=== PATIENT | female | born 1990 | race Caucasian/White ===

== ENCOUNTER → 2019-05-22 13:06 | Outpatient (CLI) | payer OTHER ==
[2019-05-22 15:24] LABS: BASOPHILS 0.2 % (0-2); EOSINOPHILS 4.3 % (0-7); HEMATOCRIT 37.2 % (36.0-48.0); HEMOGLOBIN 12.7 g/dL (12-16); IMMATURE GRANULOCYTES 0.1 % (0-5); LYMPHOCYTES 47.9 % (15-50); MCH 31.5 pg (26.0-34.0); MCHC 34.1 g/dL (31.0-37.0); MCV 92.3 fL (80.0-100.0); MEAN PLATELET VOLUME 8.6 fL (7.4-10.4); MONOCYTES 5.1 % (2-11); NEUTROPHILS 42.4 % (40-80); PLATELET COUNT 221 10x3/uL (130-400); RBC 4.03 10x6/uL (4.00-5.40); RDW 12.1 % (11.5-14.5); WBC 8.9 10x3/uL (4.8-10.8)
== END | disposition home or self-care (01) ==
LOC: D.RT 04-18 15:30 → D.LAB 04-18 15:30 → D.RAD 04-18 15:30 → D.LAB 04-18 16:15
PROVIDERS: ATTEND Internal Medicine Pulmonary Disease
DX: J45.909 Unspecified asthma, uncomplicated (principal)